=== PATIENT | male | born 1995 | race Caucasian/White ===

== ENCOUNTER 2018-12-23 05:35 | Emergency (ER) | payer OTHER ==
[~2018-12-23] VITALS: Ht 175.3 cm; Wt 70.3 kg
[2018-12-23] MEDS ORDERED: diphenhdrAMINE HCL 50 MG/1 ML VL ONE (05:44)
[2018-12-23] MEDS ORDERED: LORazepam 2MG/ML-1ML VIAL ONE (05:44)
[2018-12-23] MEDS ORDERED: HALOPERIDOL LACTATE 5 MG/ML INJ VIAL ONE (05:44)
[2018-12-23] MEDS ORDERED: IOHEXOL 300 MG/ML 100ML BOTTLE IJ ONE (05:56)
[2018-12-23] MEDS ORDERED: HALOPERIDOL LACTATE 5 MG/ML INJ VIAL IM STA (06:02)
[2018-12-23] MEDS ORDERED: diphenhdrAMINE HCL 50 MG/1 ML VL IV ONE ×2 (06:15)
[2018-12-23] MEDS ORDERED: HALOPERIDOL LACTATE 5 MG/ML INJ VIAL IM ONE (06:15)
[2018-12-23] MEDS ORDERED: LORazepam 2MG/ML-1ML VIAL IV ONE ×2 (06:15)
[2018-12-23] MEDS ORDERED: SUCCINYLCHOLINE CHLORIDE 20 MG/ML 10ML VIAL IV ONE ×2 (06:30)
[2018-12-23] MEDS ORDERED: ETOMIDATE (2MG/ML) 20ML VIAL IV ONE ×2 (06:30)
[2018-12-23] MEDS ORDERED: MIDAZOLAM DRIP 50 mg/50mL 50 ML IV SCH (06:30)
--- NOTE | 2018-12-23 06:42 | NUR ---
Respiratory note: PATIENT INTUBATED WITH AN 8.0 AND SECURED AT 24 CM AT THE LIP VIA BELLE. ASSESSED TUBE PLACEMENT, POSITIVE COLOR CHANGE PER COLORMETRIC, BILATERAL CHEST RISE, AND BILATERAL BREATH SOUNDS NOTED. PER DR. MO PLACE PATIENT ON VENTILATOR AC 16/550/+5. WILL CONTINUE TO MONITOR PATIENT AND DRAW ABG IN ONE HOUR, SPUTUM SAMPLE SENT TO LAB.
[2018-12-23 06:47] VITALS: BP 175/97
[2018-12-23] MEDS ORDERED: MIDAZOLAM DRIP 50 mg/50mL 50 ML IV ONE (06:47)
[2018-12-23] MEDS ORDERED: PROPOFOL 100 ML IV SCH (07:00)
[2018-12-23] MEDS ORDERED: PROPOFOL 100 ML IV ONE (07:03)
[2018-12-23] MEDS ORDERED: NOREPINEPHRINE 8 MG/250ML KIT 250 ML IV ONE (07:03)
[2018-12-23 07:15] LABS: Albumin 4.1 g/dL (3.4-5.0); Basophils # (auto) 0 uL; Basophils % (auto) 0.1 % (0.0-2.0); Calcium 8.4 mg/dL (8.5-10.1); Eosinophils # (auto) 0 uL; Hematocrit 44.2 % (41.0-53.0); Hemoglobin 15.2 g/dL (13.5-17.5); Lymphocytes # (auto) 1.1 uL; Lymphocytes % (auto) 5.4 % (10.0-50.0); Mean Corpuscular Hemoglobin 30.5 pg (28.0-32.0); Mean Corpuscular Hgb Conc. 34.3 g/dL (32.0-36.0); Mean Corpuscular Volume 88.7 fL (80.0-100.0); Monocytes # (auto) 1.2 uL; Monocytes % (auto) 5.7 % (0.0-12.0); Neutrophils # (auto) 18.9 uL; Neutrophils % (auto) 88.8 % (37.0-80.0); Platelet Count (auto) 223 10^3/uL (140-450); Potassium 3.4 mmol/L (3.5-5.1); Red Blood Cells 4.98 10^6/uL (4.5-5.90); Red Cell Distribution Width 13.3 % (11.8-14.3); White Blood Cell 21.2 10^3/uL (4.4-10.8)
[2018-12-23 07:17] LABS: BUN/Creatinine Ratio 9.2; Bilirubin, Total 0.7 mg/dL (0.2-1.0); Total Protein 7.1 g/dL (6.4-8.2)
[2018-12-23 07:21] LABS: INR 1.11 (0.9-1.15); Partial Thromboplastin Time 22.5 sec (23.64-32.05)
[2018-12-23] MEDS ORDERED: DOPamine 1600MCG/ML D5W 250 ML IV ONE ×2 (07:27→07:45)
[2018-12-23] MEDS ORDERED: DOPamine 1600MCG/ML D5W 250 ML IV SCH (07:28)
[2018-12-23 07:29] LABS: Amphetamine Screen, Urine NEGATIVE (NEGATIVE); Barbiturate Scree,Urine NEGATIVE (NEGATIVE); Benzodiazephine Screen, Urine NEGATIVE (NEGATIVE); Cannabinoid Screen, Urine POSITIVE (NEGATIVE); Cocaine Screen, Urine NEGATIVE (NEGATIVE); Opiate Scree,Urine NEGATIVE (NEGATIVE); Phencyclidine Screen, Urine NEGATIVE (NEGATIVE)
[2018-12-23] MEDS: NOREPINEPHRINE 8 MG/250ML KIT 250 ML IV SCH ×2 (07:29→07:33)
[2018-12-23 07:34] VITALS: BP 89/36
--- NOTE | 2018-12-23 07:45 | NUR ---
Respiratory note: TRANSPORT TEAM AT BEDSIDE, PER DR. CHEPE RODARTE ABG.
[2018-12-23] MEDS: PROPOFOL 100 ML IV SCH ×2 (07:55→07:59)
== END 2018-12-23 08:01 | disposition short-term general hospital (02) ==
LOC: EDBD 05:35 → ER 05:35
DX: T79.7XXA Traumatic subcutaneous emphysema, initial encounter (principal); S09.90XA Unspecified injury of head, initial encounter; Y08.89XA Assault by other specified means, initial encounter; Y93.89 Activity, other specified; Y99.8 Other external cause status; Y92.89 Other specified places as the place of occurrence of the external cause
CPT/HCPCS: 31500; 32551; 36415; 70450; 70486; 71045; 71260; 72125; 74177; 80053; 80307; 80320; 85025; 85610; 85730; 86850; 86900; 86901; 87070; 87205; 96372; 96374; 96375; 99291; J0330; J1200; J1265; J1630; J2060; J2250; J2704; L0120; Q9967; 94002

== ENCOUNTER 2019-03-14 16:50 | Emergency (ER) | payer MEDICAID ==
[~2019-03-14] VITALS: Ht 172.7 cm; Wt 74.8 kg
[2019-03-14 17:00] VITALS: BP 147/87
== END 2019-03-14 17:57 | disposition home or self-care (01) ==
LOC: ER 16:50
DX: S62.114A Nondisplaced fracture of triquetrum [cuneiform] bone, right wrist, initial encounter for closed fracture (principal); W19.XXXA Unspecified fall, initial encounter; Y93.89 Activity, other specified; Y92.89 Other specified places as the place of occurrence of the external cause; Y99.8 Other external cause status
CPT/HCPCS: 29125; 73110